=== PATIENT | male | born 1985 | race Caucasian/White ===

== ENCOUNTER 2020-05-25 12:05 | Day surgery (SDC) | payer OTHER, SELFPAY ==
[2020-05-22 14:38] LABS: CALCIUM 8.4 mg/dL (8.5-10.1); CARBON DIOXIDE 32.3 mmol/L (21-32); CHLORIDE SERUM 106 mmol/L (98-107); CREATININE SERUM 0.7 mg/dL (0.7-1.3); GFR1 > 60 mL/min; GLUCOSE SERUM 82 mg/dL (74-106); POTASSIUM SERUM 3.5 mmol/L (3.5-5.1); SODIUM SERUM 141 mmol/L (136-145)
[2020-05-22 14:39] LABS: BASOPHIL % 0.6 % (0.2-1.5); PLATELET COUNT 347 x10^3mcL (152-348)
[2020-05-22 14:46] LABS: RED CELL DISTRIBUTION WIDTH 15.1 % (12.1-16.2)
[2020-05-22 14:50] LABS: ALBUMIN 3.8 g/dL (3.4-5.0); ALKALINE PHOSPHATASE 85 U/L (46-116); ALT/SGPT 41 U/L (16-63); AST/SGOT 7 U/L (15-37); BILIRUBIN TOTAL 0.2 mg/dL (0.20-1.00); TOTAL PROTEIN, SERUM 7.4 g/dL (6.4-8.2)
--- NOTE | 2020-05-22 17:05 | NUR ---
CMP,CBC RESULT ,COPY GIVEN TO ANESTHESIA FOR REVIEW. DR BAPTISTE'S REVIEWED AND OK'D PATIENT TO PROCEED WITH SURGERY SCHEDULED.
[~2020-05-25] VITALS: Ht 170.2 cm; Wt 151.5 kg
[2020-05-25 12:34] VITALS: BP 134/81
[2020-05-25 17:48] VITALS: BP 142/70
== END 2020-05-25 17:30 | disposition home or self-care (01) ==
LOC: DS 12:05 → OR 14:00 → DS 15:00
PROVIDERS: ATTEND Surgery
DX: L05.91 Pilonidal cyst without abscess (principal); Z79.82 Long term (current) use of aspirin; Z79.899 Other long term (current) drug therapy
CPT/HCPCS: J0330; J0690; J2405; J2704; J3010; J3490; J7120